=== PATIENT | female | born 1985 | race Two or more races ===

== ENCOUNTER 2019-03-21 07:28 | Inpatient (IN) ==
[2019-03-21] MEDS ORDERED: miSOPROStol 50 MCG TAB PO ONE (09:06)
[2019-03-21] MEDS ORDERED: OXYTOCIN 30 UNITS/500 ML BAG IV PRN ×3 (09:06→22:42)
[2019-03-21] MEDS ORDERED: PATIENT'S ALLERGY INFO NEEDS ENTERED SCH (09:15)
--- NOTE | 2019-03-21 09:17 | History & Physical Report ---
Date of Service March 21, 2019 Assessment & Plan (1) Elective induction of labor planned: 34 yo at 38 wks by LMP, 41.3 wks by 3rd trimester US Discussed expectant management due to uncertain date vs IOL She desires to be induced today VSS Afebrile FHR reassuring GBS negative Plan admit, monitor, cervical ripening She desires oral Cytotec All questions were answered (2) Late care affecting in third trimester: History of Present Illness Chief Complaint: Induction of labor Primary Care Provider: Nella Doan MD Patient is a 34 yo female who is here for scheduled IOL She presented to care late in 3rd trimester She had 1st US on 02/26 which gave her EDC of 7/15 By her LMP her EDC was 8/8 The difference was over 3 weeks and her EDC was chosen as 715 She understands her dates are not certain, baby may not be 39 weeks yet and may have complications of prematurity She desired to be induced since last week She c/o irregular ctxs, severe hip pains for the last 2-3 weeks No LOF/VB +FM Her has been complicated by 1) Late care in 3rd trimester 2) Poor dating 3) Obesity 4) h/o macrosomia Denies any medical problems Allergies Allergy/AdvReac Type Severity Reaction Status Date / Time No Known Allergies Allergy Unverified 03/21/19 09:14 Patient History Social History Preferred Language: Chinese Communication Ability: Effective Beliefs That Will Affect Care: None marital status: Current Living Situation: Spouse Current Living Situation Comment: husbands mom, and children Feels Safe at Home: Yes Safety Concerns: Feels Safe At This Time Smoking Status: Never smoker Hx Alcohol Use: No Hx Substance Use: No Review of Systems All systems reviewed & are unremarkable except as noted in HPI & below Physical Exam Constitutional: WD/WN, vitals as above well nourished and + in distress Genitourinary: Cervix 2/ thick/ -3, ballotable Results & Data Vital Signs (Past 12 Hours) Vital Signs Temp Pulse Resp BP 03/21/19 07:53 37 C 20 03/21/19 07:50 106 H 132/72 Monitoring External Monitor Reactive Tocodynamometer Irregular ctxs q 4-6 min
[2019-03-21 09:36] LABS: Hematocrit (blood only) 34.4 % (37-47); Hemoglobin 11.1 g/dL (12.0-16.0); Mean Platelet Volume 10.4 fL (7.4-10.4); Platelet Count 192 K/uL (130-400); RDW Coefficient of Variation 15.2 % (11.5-14.5); RDW Standard Deviation 47.1 fL (36.4-46.3); White Blood Count 11.72 K/uL (4.8-10.8)
[2019-03-21 09:39] LABS: Mean Corpuscular Hgb Conc 32.3 g/dL (32-36)
[2019-03-21 10:00] LABS: Albumin Level 2.7 gm/dl (3.4-5.0); BUN Creatinine Ratio 10.9 (10-20); Calcium 9.1 mg/dl (8.5-10.1); Creatinine Clr Calc Pharmacy 156.9 ml/min; Est GFR (African American) 132.6; Est GFR (Non-African American) 114.4; Potassium 3.8 mmol/L (3.5-5.1)
[2019-03-21 10:03] LABS: Albumin Globulin Ratio 0.7 (0.9-2); Bilirubin,Total 0.2 mg/dl (0.2-1); Total Protein 6.7 gm/dl (6.4-8.2)
--- NOTE | 2019-03-21 16:38 | Obstetrical Progress Note ---
Date of Service March 21, 2019 Subjective Patient is reevaluated She started to feel ctxs after she took Cytotec this morning Now they spaced out No LOF/VB +FM VE: 3/ 50%/ -2, soft FHR categ I [place]: irregular ctxs q 2-5 min Plan augment ctxs with pitocin Continue to monitor closely Results & Data Vital Signs (Past 12 Hours) Vital Signs Temp Pulse Resp BP 03/21/19 14:33 03/21/19 12:50 37.1 C 03/21/19 11:42 83 125/63 03/21/19 07:53 37 C 03/21/19 07:50 106 H 132/72
[2019-03-21] MEDS: LACTATED RINGER'S 1,000 ML IV PRN ×2 (16:41→19:01)
[2019-03-21] MEDS ORDERED: BUPIVACAINE 0.25% 30 ML VIAL ONE (18:22)
[2019-03-21] MEDS ORDERED: ePHEDrine sulfate 50 MG/ML AMP ONE (18:23)
[2019-03-21] MEDS ORDERED: fentaNYL 2MCG/ML ROPIV 1.25MG/ML 100 ML BAG EPI ONE (18:23)
[2019-03-21] MEDS ORDERED: fentaNYL citrate 100 MCG/2 ML VIAL ONE (18:23)
--- NOTE | 2019-03-21 19:23 | Anesthesiology Consultation ---
Date of Service March 21, 2019 Assessment & Plan Chart Review Chart Review: Acceptable Risk for Labor Epidural Consults Requested none History Height/Weight Height: 5 ft 5 in Weight: 123.286 kg Allergies Allergy/AdvReac Type Severity Reaction Status Date / Time No Known Allergies Allergy Unverified 03/21/19 09:14 Medications Home Medications Medication Instructions Recorded Confirmed Last Taken multivitamin with iron 1 tab PO DAILY 03/21/19 03/21/19 03/19/19 Active Medications Generic Name Dose Route Start Last Admin Trade Name Yoly PRN Reason Stop Dose Admin Lactated Ringer's 1,000 mls @ 150 mls/hr 03/21/19 09:06 03/21/19 19:01 Lr IV 03/23/19 09:05 125 mls/hr .[id number] PRN Administration L&D Protocol Protocol Oxytocin 30 units in 500 mls @ 4 mls/hr 03/21/19 16:36 03/21/19 17:20 Pitocin IV 03/23/19 16:35 0.24 units/hr .Q24H PRN 4 mls/hr Labor Induction/Augmentation Titration Protocol 0.24 UNITS/HR Social History Smoking Status: Never smoker Hx Alcohol Use: No Hx Substance Use: No Physical Exam Vital Signs Last Vital Signs Temp 37.1 C 03/21/19 12:50 Pulse 106 H 03/21/19 19:21 Resp 20 03/21/19 14:33 BP 149/76 H 03/21/19 19:21 Pulse Ox 94 03/21/19 19:19 Testing Laboratory Results 03/21/19 09:19 03/21/19 09:19 Blood Type A Positive 03/21/19 09:19 Antibody Screen NEGATIVE 03/21/19 09:19
[2019-03-21] MEDS ORDERED: DiphenhydrAMINE HCL 50 MG/ML VIAL IV PRN (19:32)
[2019-03-21] MEDS ORDERED: NALOXONE HCL 1 MG in SODIUM CHLORIDE 0.9% 1000ML 1,000 ML IV PRN (19:32)
[2019-03-21] MEDS ORDERED: fentaNYL 2MCG/ML ROPIV 1.25MG/ML 100 ML BAG EPI PRN (19:32)
[2019-03-21] MEDS ORDERED: ePHEDrine sulfate 50 MG/ML AMP IV PRN (19:32)
[2019-03-21] MEDS ORDERED: NALOXONE HCL 0.4 MG/1 ML VIAL/CARP IV PRN (19:32)
[2019-03-21] MEDS ORDERED: NALBUPHINE HCL INJ 10 MG/ML AMP IV PRN (19:32)
--- NOTE | 2019-03-21 21:43 | Obstetrical Progress Note ---
Date of Service March 21, 2019 Subjective Patient is reevaluated She SROM'ed about 10 min ago Clear VSS Afebrile FHR categ I [place]: ctxs 1 2-3 min VE; 5/ 80%/ -2 to -1 Grossly ruptured Continue to monitor Anticipate Results & Data Vital Signs (Past 12 Hours) Vital Signs Temp Pulse Resp BP Pulse Ox 03/21/19 21:40 99 H 97 03/21/19 21:35 108 H 100 03/21/19 21:34 100 H 126/74 03/21/19 21:30 83 94 03/21/19 21:29 93 H 96 03/21/19 21:24 95 H 94 03/21/19 21:20 93 H 128/62 03/21/19 21:19 89 96 03/21/19 21:18 93 H 94 03/21/19 21:14 86 96 03/21/19 21:09 80 94 03/21/19 21:04 84 94 03/21/19 21:03 89 18 127/65 03/21/19 20:59 88 95 03/21/19 20:58 89 94 03/21/19 20:54 92 H 97 03/21/19 20:51 92 H 94 03/21/19 20:49 90 128/60 95 03/21/19 20:45 86 94 03/21/19 20:44 95 H 95 03/21/19 20:39 91 H 98 03/21/19 20:34 81 93 03/21/19 20:33 85 127/58 L 03/21/19 20:32 83 18 94 03/21/19 20:29 90 94 03/21/19 20:26 94 H 94 03/21/19 20:24 84 94 03/21/19 20:19 88 94 03/21/19 20:18 96 H 119/59 L 03/21/19 20:14 88 93 03/21/19 20:09 96 H 93 03/21/19 20:04 96 H 94 03/21/19 20:03 92 H 123/59 L 03/21/19 19:59 94 H 94 03/21/19 19:57 86 94 03/21/19 19:54 95 H 96 03/21/19 19:51 90 93 03/21/19 19:50 93 H 119/57 L 03/21/19 19:49 87 95 03/21/19 19:44 94 H 93 03/21/19 19:43 85 93 03/21/19 19:39 96 H 93 03/21/19 19:37 37 C 16 03/21/19 19:35 96 H 93 03/21/19 19:34 102 H 97 03/21/19 19:29 102 H 126/62 92 03/21/19 19:26 103 H 94 03/21/19 19:24 110 H 99 03/21/19 19:23 100 H 135/64 03/21/19 19:21 106 H 149/76 H 03/21/19 19:19 105 H 94 03/21/19 19:14 101 H 98 03/21/19 19:09 94 H 99 03/21/19 19:06 98 H 94 03/21/19 19:04 97 H 96 03/21/19 18:59 97 H 100 03/21/19 18:54 90 95 03/21/19 18:49 91 H 95 03/21/19 18:48 95 H 94 03/21/19 18:44 91 H 127/66 99 03/21/19 16:49 87 120/67 03/21/19 14:33 20 03/21/19 12:50 37.1 C 20 03/21/19 11:42 83 125/63
[2019-03-21] MEDS ORDERED: BENZOCAINE 20% AER SPR 82.5 GM CAN EXT PRN (22:42)
[2019-03-21] MEDS ORDERED: DIPHTHERIA/TETANUS/PERTUSSIS 0.5 ML SYR/VIAL IM ONE (22:42)
[2019-03-21] MEDS ORDERED: MEASLES, MUMPS & RUBELLA VIRUS VIAL SQ ONE (22:42)
[2019-03-21] MEDS ORDERED: OXYCODONE/ACETAMINOPHEN 5mg/325mg TAB PO PRN (22:42)
[2019-03-21] MEDS ORDERED: ACETAMINOPHEN 325 MG TAB PO PRN (22:42)
[2019-03-21] MEDS ORDERED: SUPERCREAM 0.870% 15 GM JAR EXT PRN (22:42)
[2019-03-21] MEDS ORDERED: HYDROCORTISONE ACETATE 25 MG SUPP PR PRN (22:42)
--- NOTE | 2019-03-22 00:32 | Anesthesia Procedure Note ---
Date of Service March 22, 2019 Anesthesia Post Epidural Note Vital Signs Vital Signs: Temp Pulse Resp BP Pulse Ox 37.0 C 94 H 18 113/59 L 97 03/21/19 21:34 03/22/19 00:27 03/21/19 21:34 03/22/19 00:27 03/21/19 22:40 Pain Intensity Abdomen: Pain Intensity: 3 Notes Mental Status: alert / awake / arousable Nausea / Vomiting: adequately controlled Pain: adequately controlled Airway Patency, RR, SpO2: stable & adequate BP & HR: stable & adequate Hydration State: stable & adequate Neuraxial Anesthesia: was administered and sensory block is resolving Anesthetic Complications: no major complications apparent and Pt Satisfied with anesthetic care Epidural: Removed without complications and With tip intact
[2019-03-22] MEDS: IBUPROFEN 600 MG TAB PO PRN ×2 (01:46→08:00)
--- NOTE | 2019-03-22 02:15 | Delivery Summary ---
DATE OF OPERATION: 03/21/2019 TIME OF DELIVERY OF BABY: 2216 hours. TIME OF DELIVERY OF PLACENTA: 2226 hours. DETAILS OF DELIVERY: The patient was found to be fully dilated and desired to push. She pushed through 3 contractions and delivered the head and then shoulders altogether with the last push. Baby was handed off to the mother where mouth and nose were suctioned. Cord was clamped x2 and cut at 1-minute delay. It was a 3-vessel cord. Cord blood was obtained. Vagina and perineum were checked for lacerations and no lacerations were found, it was intact. Then placenta was found to be in the vagina and delivered spontaneously as intact and complete. Uterus was explored, found to be empty. Lower segment was cleared of all clots and debris. Fundus was firm. EBL was 100 mL. Mom and baby tolerated the procedure well. Baby was a viable female infant, Apgars 8/9. No complications happened. I was present during whole procedure. At the end of the procedure, sponge, lap, needle count was correct x2. I attest to the content of the Intraoperative Record and any orders documented therein. Any exceptions are noted below. MTDD
[2019-03-22 06:19] LABS: Hematocrit (blood only) 31.8 % (37-47); Hemoglobin 10.3 g/dL (12.0-16.0); Mean Corpuscular Hgb Conc 32.4 g/dL (32-36); Mean Corpuscular Volume 87.8 fL (80-100); Mean Platelet Volume 10.2 fL (7.4-10.4); Platelet Count 182 K/uL (130-400); RDW Coefficient of Variation 15.1 % (11.5-14.5); RDW Standard Deviation 48.3 fL (36.4-46.3); Red Blood Count 3.62 M/uL (4.2-5.4); White Blood Count 13.33 K/uL (4.8-10.8)
[2019-03-22] MEDS: FERROUS SULFATE 325 MG TAB PO SCH (07:59)
[2019-03-22] MEDS: DOCUSATE SODIUM 100 MG CAP PO SCH ×2 (08:00→20:26)
[2019-03-22] MEDS: PRENATAL VITAMIN 1 TAB PO SCH (08:00)
--- NOTE | 2019-03-22 15:40 | Obstetrical Progress Note ---
Date of Service March 22, 2019 Subjective doing fine tolerating diet and ambulating well Physical Exam Constitutional: WD/WN, vitals as above comfortable abdomen soft non-tender fundus firm tent d/c in AM Results & Data Vital Signs (Past 12 Hours) Vital Signs Temp Pulse Pulse Resp BP Pulse Ox 03/22/19 11:35 36.8 C 98 H 18 113/70 97 03/22/19 08:00 36.6 C 91 H 18 120/75 97 03/22/19 05:05 36.5 C 71 18 111/65 98 Laboratory Results 03/21/19 03/21/19 03/21/19 09:19 09:19 09:19 WBC 11.72 H RBC 4.00 L Hgb 11.1 L Hct 34.4 L MCV 86.0 MCH 27.8 MCHC 32.3 RDW Std Deviation 47.1 H RDW Coeff of Bernice 15.2 H Plt Count 192 MPV 10.4 Sodium 140 Potassium 3.8 Chloride 106 Carbon Dioxide 27 Anion Gap 7.0 BUN 7 Creatinine 0.66 Est Cr Clr Drug Dosing 156.9 Est GFR ( Amer) 132.6 Est GFR (Non-Af Amer) 114.4 BUN/Creatinine Ratio 10.9 Glucose 84 Calcium 9.1 Total Bilirubin 0.2 AST 8 L ALT 11 L Alkaline Phosphatase 117 Total Protein 6.7 Albumin 2.7 L Globulin 4.0 Albumin/Globulin Ratio 0.7 L Blood Type A Positive Antibody Screen NEGATIVE 03/22/19 05:54 WBC 13.33 H RBC 3.62 L Hgb 10.3 L Hct 31.8 L MCV 87.8 MCH 28.5 MCHC 32.4 RDW Std Deviation 48.3 H RDW Coeff of Bernice 15.1 H Plt Count 182 MPV 10.2 Sodium Potassium Chloride Carbon Dioxide Anion Gap BUN Creatinine Est Cr Clr Drug Dosing Est GFR ( Amer) Est GFR (Non-Af Amer) BUN/Creatinine Ratio Glucose Calcium Total Bilirubin AST ALT Alkaline Phosphatase Total Protein Albumin Globulin Albumin/Globulin Ratio Blood Type Antibody Screen
[2019-03-22] MEDS ORDERED: BISACODYL 5 MG TABEC PO SCH (20:00)
[2019-03-23] MEDS: IBUPROFEN 600 MG TAB PO PRN ×2 (00:05→08:01)
[2019-03-23] MEDS: FERROUS SULFATE 325 MG TAB PO SCH (08:01)
[2019-03-23] MEDS: DOCUSATE SODIUM 100 MG CAP PO SCH (08:01)
[2019-03-23] MEDS: PRENATAL VITAMIN 1 TAB PO SCH (08:01)
[2019-03-23 08:13] LABS: Hematocrit (blood only) 33.2 % (37-47); Hemoglobin 10.7 g/dL (12.0-16.0)
[2019-03-23] MEDS ORDERED: BISACODYL 10 MG SUPP PR PRN (09:00)
--- NOTE | 2019-03-23 10:09 | Obstetrical Progress Note ---
Date of Service March 23, 2019 Subjective Patient is seen and examined. She feels well, no complaints. Likes to be discharged Ambulating without dizziness Voiding without difficulty Tolerating regular diet with out N&V Bleeding is minimal No fever/ chills/ CP/ SOB/ N&V/ Leg pain Breast feeding without problems Discussed contraception with patient in details. Abstinence for 6 weeks, BCP, progestin only pills, Nexplanon, IUD's, Mirena and Paragard She desires BCP, POP Discussed BCP may not as effective if BW is over 270 lb Discussed depression, signs Denies any h/o depression or pp depression Vital Signs Temp Pulse Resp BP Pulse Ox 03/23/19 08:05 36.6 C 84 18 103/70 97 03/23/19 00:10 36.8 C 84 18 107/65 96 03/22/19 15:45 36.8 C 74 18 109/71 03/22/19 11:35 36.8 C 98 H 18 113/70 97 03/23/19 Range/Units 07:55 Hgb 10.7 L (12.0-16.0) g/dL Hct 33.2 L (37-47) % PE: General: Alert, orientedx3, NAD Abd: soft, NT, fundus firm, below Umbilicus Perineum intact, Lochia rubra minimal Ext; NT, no edema AP: 34 yo s/p , ppd# 2 VSS Afebrile doing well Continue routine care All questions were answered Discussed when to call D/C home , f/u in office Results & Data Vital Signs (Past 12 Hours) Vital Signs Temp Pulse Resp BP Pulse Ox 03/23/19 08:05 36.6 C 84 18 103/70 97 03/23/19 00:10 36.8 C 84 18 107/65 96
== END 2019-03-23 11:55 | disposition home or self-care (01) | DRG 806 ==
LOC: 4S1 07:28 → 4N 03-22 04:55